=== PATIENT | male | born 1955 | race Caucasian/White ===

== ENCOUNTER 2017-01-11 13:28 | Emergency (ER) | payer OTHER, MEDICAID ==
[2017-01-11] MEDS ORDERED: NS 1,000 ML IV ONE ×3 (13:55→15:39)
--- NOTE | 2017-01-11 13:55 | EDPHY ---
General - History Smoking Status: Former smoker Narrative: CHIEF COMPLAINT: Multiple complaints HISTORY OF PRESENT ILLNESS: Patient complains headache, nausea, constipation, vomiting, subjective fever, malaise. Symptoms started overnight and have been persistent. They wax and wane. They are moderate to severe. He has associated dental pain from dental extractions performed 9 days ago and is now he did chills. He has no chest pain or shortness of breath. No cough. No urinary complaints. He does have ongoing pain related to his multiple sclerosis. He lives with a caregiver in the caregiver reports that she has been concerned that he has a source of infection. She provides most of his daily care. No other associated complaints or modifying factors. REVIEW OF SYSTEMS: Ten systems reviewed and are negative unless otherwise noted in the HPI PCP: Dr. Daily SPECIALISTS: Dr. Hill, Neurology Dr.. Devries, REJI PAST MEDICAL HISTORY: Significant for multiple sclerosis. Medications reviewed at bedside SOCIAL HISTORY: Nonsmoker. Disabled and has a caregiver with him daily. FAMILY HISTORY: Noncontributory EXAMINATION General Appearance: Alert, no distress, frail Head: normocephalic, atraumatic Eyes: Pupils equal and round, no conjunctival pallor or injection. EOMS intact. ENT, Mouth: Mucous membranes moist. Edentulous with healing wounds in the gumline. No palpable abscesses. No pulpitis. No lesions to the oral mucosa otherwise Neck: Normal inspection, supple, non-tender. Midline trachea Respiratory: Lungs are clear to auscultation. No wheeze, rhonchi or crackles Cardiovascular: Regular rate and rhythm. No murmur. Gastrointestinal: Abdomen is soft and nontender. Bowel sounds are symmetric in all 4 quadrants. Neurological: A&O, nonfocal, strength is symmetric and reportedly baseline. Skin: Warm and dry, no rash. No petechiae or purpura Extremities: Nontender, no pedal edema Psychiatric: Mood and affect normal DIFFERENTIAL DIAGNOSES: Including but not limited to influenza, dehydration, weakness, electrolyte disturbance, endocarditis, pneumonia, abscess MDM: 1:55 p.m. Likely dehydration and postoperative pain with uncertain etiology for remainder of symptoms. He is in no acute distress. His vital signs are stable and do not meet SIRS criteria. However, due to his recent surgery of order blood cultures and lactic acid. I will discuss with Dr. Pinto. Chest x-ray and laboratory studies are pending. 2:30 p.m. Patient re-evaluated. Resting comfortably. Vital signs stable. Laboratory studies thus far reveal negative CBC. Lactic acid negative. 3:15 p.m. Chest x-ray is unremarkable for any acute findings. 3:45 p.m. Patient has been evaluated by Dr. Pinto. Laboratory studies thus far are negative for any acute findings. Chest x-ray is clear. Flu swab negative. Urinalysis is the only remaining laboratory study. 4:15 p.m. Patient re-evaluated. He still is unable to urinate. I offered a straight cath , and he is comfortable this plan. Vital signs remained stable. 4:45 p.m. Still awaiting the straight cath for urinalysis. At this time, Dr. Pinto will assume care of the patient. Please see his note for final disposition. (Dane Soto) Medical Decision Making: PHYSICIAN DOCUMENTATION: The patient was evaluated and managed by the Physician Cable Respooler and myself. I have reviewed the chart and agree with the findings and plan of care as documented. In addition, I examined the patient myself at 1532. History confirmed as subjective fevers and malaise for the last 24 hours. Feels a little bit weaker than usual. Physical findings as follows: No trismus, no gum swelling, neck supple. Floor of mouth not hard, no stridor or drooling, no facial swelling, neck supple. Not in respiratory distress. 12-lead EKG interpreted by me; official reading is in trace master. My interpretation is sinus rhythm rate 67 with left axis. 174: Re-examined, symptoms are gone except for mild headache. Oral Tylenol, noncontrast head CT, discharge if feels better. 184: Negative CT for headache per Dr. Hubbard, possible new white matter plaque not seen on previous MRI, no intracranial hemorrhage. 1850: Re-evaluated, feels better, wants to go home. I think that sepsis or acute bacterial infection is unlikely. Lab reviewed WBC 7.08, neg lactate, negative flu, no pneumonia or UTI. ENT exam not suggestive of infection after dental extraction. Afebrile, no murmur noted on cardiac examination. No meningeal signs. I am the secondary supervising physician. (Geovanny Pinto) - Objective Vital Signs: Initial Vital Signs Temperature (C) 36.7 C 01/11/17 13:35 Heart Rate 81 01/11/17 13:35 Respiratory Rate 18 01/11/17 13:35 Blood Pressure 148/86 H 01/11/17 13:35 O2 Sat (%) 94 01/11/17 13:35 O2 Delivery Mode Room Air Allergies/Adverse Reactions: No Known Allergies Allergy (Verified 08/20/14 09:28) Home Medications: Medication Instructions Recorded Citalopram [CeleXA 20 MG] 05/17/14 GABAPENTIN 05/17/14 IBUPROFEN [MOTRIN] 05/17/14 Cephalexin [Keflex] 500 mg PO QID #20 cap 10/15/14 Laboratory Results: Laboratory Results 01/11/17 14:30 01/11/17 14:30 Medications Given: Discontinued Medications Acetaminophen (Tylenol) 650 mg PO EDNOW ONE Stop: 01/11/17 17:50 Last Admin: 01/11/17 18:31 Dose: 650 mg Sodium Chloride (Ns) 1,000 mls @ 0 mls/hr IV EDNOW ONE; Wide Open PRN Reason: Protocol Stop: 01/11/17 13:56 Last Admin: 01/11/17 14:44 Dose: 1,000 mls Sodium Chloride (Ns) 1,000 mls @ 0 mls/hr IV EDNOW ONE; Wide Open PRN Reason: Protocol Stop: 01/11/17 15:40 Last Admin: 01/11/17 17:46 Dose: 1,000 mls Sodium Chloride (Ns) 1,000 mls @ 0 mls/hr IV EDNOW ONE; Wide Open PRN Reason: Protocol Stop: 01/11/17 15:40 Last Admin: 01/11/17 17:46 Dose: 1,000 mls Departure - Departure Disposition: Home, Routine, Self-Care Clinical Impression: Weakness, Headache Condition: Good Instructions: Weakness (ED) Referrals: Patient,NotPresent [Unknown] - As per Instructions Jackie Daily MD [Primary Care Provider] - As per Instructions
[2017-01-11 14:46] LABS: % IMMATURE GRANULYOCYTES 0.3 % (0.0-1.1); ABSOLUTE IMMATURE GRANULOCYTES 0.02 10^3/uL (0.00-0.10); ADD DIFF? NO; ADD MORPH? NO; ADD SCAN? NO; ATYPICAL LYMPHOCYTE FLAG 0 (0-99); FRAGMENT RBC FLAG 0 (0-99); HEMATOCRIT 41.2 % (40.0-51.0); HEMOGLOBIN 14.2 g/dL (13.7-17.5); LEFT SHIFT FLG 0 (0-99); LIPEMIA HEMOLYSIS FLAG 90 (0-99); MEAN CELL HEMOGLOBIN 31.7 pg (27.9-34.1); MEAN CELL HEMOGLOBIN CONCENTR. 34.5 g/dL (32.4-36.7); MEAN PLATELET VOLUME 9.4 fL (8.7-11.7); PLATELET CLUMPS FLAG 0 (0-99); PLATELET COUNT 265 10^3/uL (150-400); RED BLOOD CELL COUNT 4.48 10^6/uL (4.40-6.38); RED CELL DISTRIBUTION WIDTH 12.2 % (11.5-15.2)
--- NOTE | 2017-01-11 14:50 | CPEKG ---
Heart Rate: 67 RR Interval: 896 P-R Interval: 164 QRSD Interval: 92 QT Interval: 408 QTC Interval: 431 P [place]: 80 QRS [place]: -43 T Wave [place]: 56 EKG Severity - OTHERWISE NORMAL ECG - EKG Impression: SINUS RHYTHM EKG Impression: LEFT AXIS DEVIATION Electronically Signed By: Geovanny Pinto 11-Jan-2017 14:55:10
[2017-01-11 14:53] LABS: INR 1.16 (0.83-1.16); PROTIME(PATIENT) 14.8 SEC (12.0-15.0)
[2017-01-11 14:54] LABS: APTT 32.1 SEC (23.0-38.0)
[2017-01-11 15:02] LABS: ALANINE AMINOTRANSFERASE 20 IU/L (21-72); ALBUMIN 4.4 g/dL (3.5-5.0); ALKALINE PHOSPHATASE 55 IU/L (38-126); ANION GAP 14 mEq/L (8-16); ASPARTATE AMINOTRANSFERASE 15 IU/L (17-59); BILIRUBIN,TOTAL 0.6 mg/dL (0.1-1.4); BILIRUBIN-CONJUGATED 0.3 mg/dL (0.0-0.5); BILIRUBIN-UNCONJUGATED 0.3 mg/dL (0.0-1.1); CALCIUM 9.6 mg/dL (8.5-10.4); CARBON DIOXIDE 23 mEq/l (22-31); CHLORIDE 101 mEq/L (97-110); CREATININE 0.8 mg/dL (0.7-1.3); GLOMERULAR FILTRATION RATE > 60; GLUCOSE 100 mg/dL (70-100); POTASSIUM 4.2 mEq/L (3.5-5.2); SODIUM 138 mEq/L (134-144); TOTAL PROTEIN 6.9 g/dL (6.3-8.2)
[2017-01-11 17:12] LABS: COLOR YELLOW; LEUKOCYTE ESTERASE,URINE NEGATIVE (NEGATIVE); NITRITE,URINE NEGATIVE (NEGATIVE)
[2017-01-11 17:34] LABS: MUCUS TRACE /lpf (NONE-1+)
[2017-01-11] MEDS ORDERED: ACETAMINOPHEN 325 MG TAB PO ONE (17:49)
[2017-01-11 19:00] VITALS: BP 138/77; PULSE 81; RESP 18; TEMP 98.2; O2SAT 95
== END 2017-01-11 19:00 | disposition home or self-care (01) ==
LOC: EDUNIT#
DX: R51 Headache (principal); R53.1 Weakness; E86.9 Volume depletion, unspecified; K08.89 Other specified disorders of teeth and supporting structures; Z87.891 Personal history of nicotine dependence

== ENCOUNTER → 2018-04-13 | Outpatient (CLI) | payer OTHER, MEDICAID | LOC: FIMAGING 15:45 | PROVIDERS: ATTEND Nurse Practitioner Adult Health | DX: R07.81 Pleurodynia (principal) ==

== ENCOUNTER → 2018-04-30 | Outpatient (CLI) | payer OTHER, MEDICAID ==
[~2018-04-30] MED LIST: IOHEXOL 300 mgI/ML (OMNIPAQUE) 150 ML BTL IV ONE
== END ==
LOC: FIMAGING 14:05
PROVIDERS: ATTEND Internal Medicine
DX: R91.8 Other nonspecific abnormal finding of lung field (principal); R05 Cough; R53.1 Weakness; R63.4 Abnormal weight loss; G35 Multiple sclerosis; Q76.49 Other congenital malformations of spine, not associated with scoliosis
CPT/HCPCS: 71260; Q9967

== ENCOUNTER → 2018-06-05 | Outpatient (CLI) | payer OTHER, MEDICAID | LOC: FIMAGING 12:03 | PROVIDERS: ATTEND Internal Medicine | DX: J18.9 Pneumonia, unspecified organism (principal); J85.2 Abscess of lung without pneumonia ==

== ENCOUNTER 2018-06-29 02:21 | Emergency (ER) | payer OTHER, MEDICAID ==
[2018-06-29] MEDS ORDERED: MAGNESIUM CITRATE 300 ML BOTTLE PO ONE (02:37)
--- NOTE | 2018-06-29 02:39 | EDPHY ---
H & P Stated Complaint: CONSTIPATED , NO B.M. IN 3 DAYS Time Seen by Provider: 06/29/18 02:24 HPI/ROS: HPI The patient presents with constipation, brought in by ambulance from his home where he resides within in-home caregiver. Apparently the patient has suffered from constipation chronically. His caregiver has performed disimpactions previously for him once every few days. However, she refused to perform 1 at 2: 00 a.m. This morning when he awoke with constipation symptoms. He does not have any abdominal pain, nausea or vomiting. His symptoms feel like his usual constipation. Paramedics report that the home was in good condition and the caregiver seemed appropriate. The patient is currently awaiting placement at a rest home and says that he should be placed in the next few days. His caregiver is willing to accept him back at home. REVIEW OF SYSTEMS 10 systems were reviewed and negative with the exception of the elements mentioned in the history of present illness. PMHx: Constipation, multiple sclerosis Soc Hx: Lives in his home with a caregiver PHYSICAL General Appearance: Alert, no distress Eyes: Pupils equal and round no pallor or injection ENT, Mouth: Mucous membranes moist Respiratory: There are no retractions, lungs are clear to auscultation Cardiovascular: Regular rate and rhythm Gastrointestinal: Abdomen is soft and non-tender, no masses, bowel sounds normal Neurological: A&O, moves all extremities Skin: Warm and dry, no rashes Musculoskeletal: Neck is supple non tender Extremities: symmetrical, full range of motion Psychiatric: Patient is oriented X 3, there is no agitation Source: Patient, EMS Exam Limitations: No limitations - Personal History Current Tetanus/Diphtheria Vaccine: No Current Tetanus Diphtheria and Acellular Pertussis (TDAP): No - Medical/Surgical History Hx Asthma: No Hx Chronic Respiratory Disease: No Hx Diabetes: No Hx Cardiac Disease: No Hx Renal Disease: No Hx Cirrhosis: No Hx Alcoholism: No Hx HIV/AIDS: No Hx Splenectomy or Spleen Trauma: No Other PMH: MS, arthritis, PROSTATE AND BLADDER PROBLEMS SUPRAPUBIC TUBE, CHRONIC ABD PAIN - Social History Smoking Status: Former smoker Constitutional: Initial Vital Signs Temperature (C) 36.6 C 06/29/18 02:25 Heart Rate 60 06/29/18 02:25 Respiratory Rate 16 06/29/18 02:25 Blood Pressure 133/98 H 06/29/18 02:25 O2 Sat (%) 94 06/29/18 02:25 O2 Delivery Mode Room Air Allergies/Adverse Reactions: No Known Allergies Allergy (Verified 06/29/18 02:28) Home Medications: Medication Instructions Recorded Citalopram [CeleXA 20 MG] 05/17/14 GABAPENTIN 05/17/14 IBUPROFEN [MOTRIN] 05/17/14 Cephalexin [Keflex] 500 mg PO QID #20 cap 10/15/14 Medical Decision Making Differential Diagnosis: 62-year-old male with multiple sclerosis presents with chronic constipation, caregiver at home unwilling to perform fecal disimpaction tonight, brought in by ambulance. Abdominal exam is entirely benign without any tenderness. It appears the patient and his caregiver got in an argument. He is awaiting placement currently at a rest home given his home situation. There is not concern for neglect by the EMS providers to talked to the caregiver and inspected the home. The caregivers willing to take the patient back to home. I will treat him here with magnesium citrate and he can be discharged home. Departure - Departure Disposition: Home, Routine, Self-Care Clinical Impression: Multiple sclerosis Constipation Qualifiers: Constipation type: unspecified constipation type Qualified Code(s): K59.00 - Constipation, unspecified Condition: Good Instructions: Constipation (ED) Referrals: [facility],. [Clinic] - As per Instructions
[2018-06-29 03:26] VITALS: BP 128/78
== END 2018-06-29 03:29 | disposition home or self-care (01) ==
LOC: EDUNIT#
DX: K59.00 Constipation, unspecified (principal); G35 Multiple sclerosis